=== PATIENT | female | born 1955 | race Caucasian/White ===

== ENCOUNTER → 2017-01-14 | Outpatient (CLI) | payer OTHER | LOC: CIMAGING 14:20 | DX: Z12.31 Encounter for screening mammogram for malignant neoplasm of breast (principal) | CPT/HCPCS: G0202 ==

== ENCOUNTER → 2017-02-17 | Outpatient (CLI) | payer OTHER | LOC: CIMAGING 13:20 | PROVIDERS: ATTEND Internal Medicine | DX: N63 Unspecified lump in breast (principal) | CPT/HCPCS: 76641-PO; G0206 ==

== ENCOUNTER 2017-10-15 12:17 | Emergency (ER) | payer SELFPAY ==
[2017-10-15 12:29] VITALS: RESP 16
[2017-10-15 12:32] VITALS: TEMP 98.2
--- NOTE | 2017-10-15 13:00 | EDPHY ---
H & P Stated Complaint: left knee pain soreness since Friday,Denies trauma Time Seen by Provider: 10/15/17 12:35 HPI/ROS: Chief Complaint: Knee pain HPI: 62-year-old woman presenting with worsening left knee pain for the last several days. She does not recall any specific injuries. Has had knee surgery and meniscal repair in the past. It has been getting increasingly swollen over the last 24 hours. No fevers or chills. No redness. No numbness or weakness. No relief with home pain medications. She is ambulating with discomfort. ROS: 10 point Review of Systems is negative except as noted in the HPI. PMH: Hypertension Social History: No smoking Family History: non-contributory Physical Exam: Gen: Awake, Alert, No Distress Ext: no edema, left knee is swollen. She has decreased flexion extension secondary to pain. There is no erythema. Is not warm to the touch. There is a significant effusion. Mild patellar tenderness, pain is in the lateral aspect of the knee. Skin: no rash Neuro: CN II-XII intact, Sensation grossly intact, Strength 5/5 in bilateral upper and lower extremities - Personal History Current Tetanus Diphtheria and Acellular Pertussis (TDAP): Yes - Medical/Surgical History Hx Asthma: No Hx Chronic Respiratory Disease: No Hx Diabetes: No Hx Cardiac Disease: No Hx Renal Disease: No Hx Cirrhosis: No Hx Alcoholism: No Hx HIV/AIDS: No Hx Splenectomy or Spleen Trauma: No Other PMH: HTN/ARTHRITIS. B Knee meniscus repairs - Social History Smoking Status: Current every day smoker Constitutional: Initial Vital Signs Temperature (C) 36.8 C 10/15/17 12:25 Heart Rate 79 10/15/17 12:25 Respiratory Rate 16 10/15/17 12:25 Blood Pressure 134/79 H 10/15/17 12:25 O2 Sat (%) 96 10/15/17 12:25 O2 Delivery Mode Room Air Allergies/Adverse Reactions: lisinopril Allergy (Verified 10/15/17 12:29) Home Medications: Medication Instructions Recorded Losartan-Hctz 50-12.5 mg Tab 03/30/16 SIMVASTATIN 03/30/16 Seroquel 03/30/16 oxyCODONE/APAP 5/325 [Percocet 1 - 2 tab PO Q4H PRN #10 tab 10/15/17 5/325 (*)] Medical Decision Making - Diagnostics Imaging Results: Imaging Impressions Knee X-Ray 10/15/17 12:39 Impression: 1. Moderate degenerative changes medial knee joint. 2. Mild to moderate effusion in the suprapatellar bursa. 3. Subchondral erosion suspected posterior margin of the patella with small osteophytes. Procedures: Procedure: Arthrocentesis. After verbal informed consent was obtained explaining the risks including but not limited to infection and bleeding a arthrocentesis was performed on the left knee. The patient was prepped and draped in the usual sterile fashion. The joint was anesthetized with 1% lidocaine. Approximately 5 mL of serosanguineous fluid was obtained. There were no complications. The procedure was performed by myself. ED Course/Re-evaluation: Patient's knee was tapped here. It does not appear purulent. Been sent off to the lab. If he had to be [place] to [place]. She does not want to stay and wait for the result. She would prefer to go home. Given that there is not erythematous or warm I do not think that this is a likely infection. Will discharge with staff to follow up on results. If they are abnormal she will be called this afternoon. - Data Points Laboratory Results: 10/15/17 13:42 Synovial Source Pending Synovial Color Pending Synovial Appearance Pending Synovial WBC Pending Synovial RBC Pending Synovial Crystals Pending Departure - Departure Disposition: Home, Routine, Self-Care Clinical Impression: Knee pain Condition: Good Instructions: Swollen Knee Joint (ED), Knee Pain (ED) Additional Instructions: Follow up with primary care physician in 2-3 days for re-evaluation. We will call you if you're joint fluid tests are abnormal. Return emergency depart for increasing pain, redness, fevers, chills, or any other concerns. Referrals: Yunior Hadley MD [Primary Care Provider] - As per Instructions Prescriptions: oxyCODONE/APAP 5/325 [Percocet 5/325 (*)] 1 - 2 tab PO Q4H PRN #10 tab PRN Reason: Pain, Severe
[2017-10-15 15:27] VITALS: BP 141/78; PULSE 77; O2SAT 94
[2017-10-15 15:54] LABS: WBC, SYNOVIAL FLUID 20673 /mm3 (0-150)
[2017-10-15 16:06] LABS: CRYSTALS, SYNOVIAL FLUID NONE SEEN (NONE SEEN)
== END 2017-10-15 14:42 | disposition home or self-care (01) ==
LOC: CED 12:17
PROC: 0S9D3ZZ Drainage of Left Knee Joint, Percutaneous Approach (ICD-10-PCS; principal; 2017-10-15)
DX: M25.562 Pain in left knee (principal); I10 Essential (primary) hypertension; F17.200 Nicotine dependence, unspecified, uncomplicated
CPT/HCPCS: 73562-PO